=== PATIENT | female | born 1960 | race Caucasian/White ===

== ENCOUNTER → 2020-12-22 | Outpatient (CLI) | payer OTHER | LOC: KOH-I 16:01 | DX: M79.672 Pain in left foot (principal); S92.322D Displaced fracture of second metatarsal bone, left foot, subsequent encounter for fracture with routine healing; X58.XXXD Exposure to other specified factors, subsequent encounter | CPT/HCPCS: 73620 ==

== ENCOUNTER → 2021-01-23 | Outpatient (CLI) | payer OTHER | LOC: MAMO 09-01 13:00 | DX: Z12.31 Encounter for screening mammogram for malignant neoplasm of breast (principal); E04.1 Nontoxic single thyroid nodule | CPT/HCPCS: 76536; 77063; 77067 ==

== ENCOUNTER → 2021-01-23 | Outpatient (CLI) | payer OTHER | LOC: KOH-I 11:06 | DX: M81.0 Age-related osteoporosis without current pathological fracture (principal); M85.88 Other specified disorders of bone density and structure, other site | CPT/HCPCS: 77080 ==

== ENCOUNTER → 2021-03-14 | Outpatient (CLI) | payer OTHER | LOC: MAMO 13:36 | DX: R92.8 Other abnormal and inconclusive findings on diagnostic imaging of breast (principal) | CPT/HCPCS: 76641-RT; 77065; G0279 ==

== ENCOUNTER → 2021-06-05 | Outpatient (CLI) | payer OTHER | LOC: KOH-I 14:23 | DX: M25.552 Pain in left hip (principal); R93.6 Abnormal findings on diagnostic imaging of limbs | CPT/HCPCS: 73502 ==

== ENCOUNTER → 2021-07-24 | Outpatient (CLI) | payer OTHER | LOC: KOH-I 08:53 | DX: T84.031A Mechanical loosening of internal left hip prosthetic joint, initial encounter (principal); M89.562 Osteolysis, left lower leg | CPT/HCPCS: 73700 ==

== ENCOUNTER → 2021-10-24 | Outpatient (CLI) | payer OTHER ==
[~2021-10-24] MED LIST: CARDIZEM60 MG PO; HYDROCHLOROTHIA25 MG PO; LATANOPROST2.5 ML EYEBOTH; OMEPRAZOLE20 M1 PO; PRAVASTATIN SOD40 MG PO
[2021-10-24 11:23] LABS: HEMOGLOBIN 14.2 gm/dl (12.3-15.3); RED BLOOD COUNT 4.67 M/UL (4.00-5.10)
[2021-10-24 11:45] LABS: BUN/CREATININE RATIO 18 (0-10)
== END ==
LOC: OPSV2 09:46 → EDSTATUS 10:00
PROVIDERS: Orthopaedic Surgery
DX: Z01.818 Encounter for other preprocedural examination (principal); M16.12 Unilateral primary osteoarthritis, left hip
CPT/HCPCS: 36415; 71046; 80048; 85025; 85652; 86140; 93005

== ENCOUNTER → 2021-11-06 | Outpatient (CLI) | payer OTHER ==
[~2021-11-06] MED LIST changes: +CYCLOBENZAPRINE10 MG PO; +ELIQUIS2.5 MG PO; +ENDOCET 7.5-321 EACH PO; +ZOFRAN 4 MG TAB4 MG PO
[2021-11-06 11:41] LABS: BUN/CREATININE RATIO 19 (0-10)
== END ==
LOC: LAB 10:43
PROVIDERS: Orthopaedic Surgery
DX: Z01.812 Encounter for preprocedural laboratory examination (principal)
CPT/HCPCS: 36415; 80048; 86850; 86900; 86901

== ENCOUNTER 2021-11-07 09:47 | Inpatient (IN) | payer OTHER ==
[~2021-11-07] VITALS: Ht 160 cm; Wt 75.3 kg
[~2021-11-07 09:47] MED LIST changes: -CYCLOBENZAPRINE10 MG PO; -ELIQUIS2.5 MG PO; -ENDOCET 7.5-321 EACH PO; -ZOFRAN 4 MG TAB4 MG PO
[2021-11-07] MEDS ORDERED: ENDOCET 7.5-321 EACH PO (17:54)
[2021-11-07] MEDS ORDERED: ELIQUIS2.5 MG PO (17:54)
[2021-11-07] MEDS ORDERED: ZOFRAN 4 MG TAB4 MG PO (17:54)
[2021-11-07] MEDS ORDERED: CYCLOBENZAPRINE10 MG PO (17:54)
[2021-11-07 19:00] LABS: HEMOGLOBIN 11.5 gm/dl (12.3-15.3); RED BLOOD COUNT 3.81 M/UL (4.00-5.10); WHITE BLOOD COUNT 14.2 K/UL (4.5-11.0)
[2021-11-08 03:27] LABS: HEMOGLOBIN 11.1 gm/dl (12.3-15.3); RED BLOOD COUNT 3.71 M/UL (4.00-5.10); WHITE BLOOD COUNT 11.9 K/UL (4.5-11.0)
== END 2021-11-08 15:07 | disposition home or self-care (01) | DRG 468 ==
LOC: OR 09:47 → M/S 09:48 → OR 17:05 → M/S 19:44 → OR 19:44 → M/S 11-08 15:07
PROVIDERS: ADMIT Orthopaedic Surgery
PROC: 0SPE0JZ Removal of Synthetic Substitute from Left Hip Joint, Acetabular Surface, Open Approach (ICD-10-PCS; 2021-11-07)
PROC: 0SRE03A Replacement of Left Hip Joint, Acetabular Surface with Ceramic Synthetic Substitute, Uncemented, Open Approach (ICD-10-PCS; principal; 2021-11-07 17:30)
DX: T84.031A Mechanical loosening of internal left hip prosthetic joint, initial encounter (principal); I10 Essential (primary) hypertension; E78.5 Hyperlipidemia, unspecified; Y83.8 Other surgical procedures as the cause of abnormal reaction of the patient, or of later complication, without mention of misadventure at the time of the procedure; K21.9 Gastro-esophageal reflux disease without esophagitis; M81.0 Age-related osteoporosis without current pathological fracture; Z81.8 Family history of other mental and behavioral disorders; Z80.1 Family history of malignant neoplasm of trachea, bronchus and lung; Z82.49 Family history of ischemic heart disease and other diseases of the circulatory system; Z98.890 Other specified postprocedural states; Z79.899 Other long term (current) drug therapy
CPT/HCPCS: 36415; 73501; 73502; 76000; 80048; 85025; 85027; 87070; 87205; 97116; 97161; 97166; 97530; 97535; C1713; C1762; C1776; J0690; J1100; J1170; J1644; J2250; J2274; J2370; J2405; J2704; J2710; J2795; J3010; J3370; J7030; J7050; J7120

== ENCOUNTER → 2022-01-11 | Outpatient (CLI) | payer OTHER ==
[~2022-01-11] MED LIST changes: +CYCLOBENZAPRINE10 MG PO; +ELIQUIS2.5 MG PO; +ENDOCET 7.5-321 EACH PO; +ZOFRAN 4 MG TAB4 MG PO
== END ==
LOC: KOH-I 11:16
DX: E04.2 Nontoxic multinodular goiter (principal); E07.9 Disorder of thyroid, unspecified
CPT/HCPCS: 76536